=== PATIENT | female | born 1985 | race American Indian/Alaskan Native ===

== ENCOUNTER 2019-01-05 13:45 | Emergency (ER) | payer MEDICARE ==
--- NOTE | 2019-01-05 14:02 | Emergency Department Report ---
Blank Doc - Documentation Documentation: pt states she is feeling angry and starting to feel "SI" having delusions no HI no hallucinations denies any suicidal plan [place] [facility] pt states she is on depo
[2019-01-05 14:32] LABS: Basophils % (Auto) 0.3 % (0.0-1.8); Eosinophils % (Auto) 0.2 % (0.0-4.3); Hematocrit 37.8 % (30.3-42.9); Hemoglobin 13.1 gm/dl (10.1-14.3); Lymphocytes # (Auto) 1.8 K/mm3 (1.2-5.4); Lymphocytes % (Auto) 22.1 % (13.4-35.0); Mean Corpuscular HGB Conc 35 % (30-34); Mean Corpuscular Volume 96 fl (79-97); Monocytes # (Auto) 0.9 K/mm3 (0.0-0.8); Monocytes % (Auto) 10.6 % (0.0-7.3); Platelet Count 208 K/mm3 (140-440); Red Blood Count 3.94 M/mm3 (3.65-5.03); Red Cell Distribution Width 13.5 % (13.2-15.2)
[2019-01-05 14:51] LABS: Alanine Aminotransferase 9 units/L (7-56); Albumin 4.2 g/dL (3.9-5); BUN/Creatinine Ratio 9; Blood Urea Nitrogen 6 mg/dL (7-17); Hemolysis Index 9
[2019-01-05 15:02] LABS: Amphetamine Screen,Urine PRESUMPTIVE NEGATIVE; Benzodiazepines Screen,Urine PRESUMPTIVE NEGATIVE; Cannabinoid Screen,Urine PRESUMPTIVE NEGATIVE; Cocaine Screen,Urine PRESUMPTIVE NEGATIVE; Methadone Screen,Urine PRESUMPTIVE NEGATIVE; Opiate Screen,Urine PRESUMPTIVE NEGATIVE
[2019-01-05 15:05] LABS: Bacteria,Urine 1+ /HPF (Negative); Bilirubin,Urine NEG (Negative); Blood,Urine MOD (Negative); Color,Urine Yellow (Yellow); Hyaline Casts,Urine 9 /LPF; Mucus,Urine FEW /HPF; Urobilinogen,Urine < 2.0 mg/dL (<2.0)
--- NOTE | 2019-01-05 19:21 | Emergency Department Report ---
ED Psych HPI - General Chief Complaint: Psych Stated Complaint: PSYCH Time Seen by Provider: 01/05/19 14:00 Source: patient Mode of arrival: Ambulatory - History of Present Illness Initial Comments: Patient is 33 years old female with history of schizophrenia. Patient presented to the ER stating that she is hearing voices passing out to kill herself by running in traffic. Patient stated that she had history of suicidal attempts before but she does not want to elaborate. Patient denied any homicidal ideation. Patient also denied any visual hallucination. MD Complaint: suicidal ideation Associated Psychiatric Symptoms: suicidal ideation, racing thoughts, auditory hallucinations History of same: Yes Quality: constant Improves With: none Worsens With: none Associated Symptoms: denies other symptoms Treatments Prior to Arrival: none If Self Harm: admits thoughts of, has plan, self-inflicted trauma - Related Data Home Medications Medication Instructions Recorded Confirmed Last Taken No Known Home Medications [No 01/03/19 01/03/19 Unknown Reported Home Medications] Allergies Allergy/AdvReac Type Severity Reaction Status Date / Time No Known Allergies Allergy Unverified 01/02/19 22:32 ED Review of Systems ROS: Stated complaint: PSYCH Other details as noted in HPI Comment: All other systems reviewed and negative Constitutional: denies: chills, fever Respiratory: denies: cough, orthopnea, shortness of breath, SOB with exertion, SOB at rest Cardiovascular: denies: chest pain, palpitations Gastrointestinal: denies: abdominal pain, nausea Genitourinary: denies: frequency, hematuria Musculoskeletal: denies: back pain Neurological: denies: numbness Psychiatric: anxiety, depression, auditory hallucinations, suicidal thoughts. denies: visual hallucinations, homicidal thoughts ED Past Medical Hx - Past Medical History Hx Seizures: Yes Hx Psychiatric Treatment: Yes (bipolar,schizophrenia) Additional medical history: PCOS - Social History Smoking Status: Never Smoker Substance Use Type: None - Medications Home Medications: Home Medications Medication Instructions Recorded Confirmed Last Taken Type No Known Home Medications [No 01/03/19 01/03/19 Unknown History Reported Home Medications] ED Physical Exam - General Limitations: No Limitations General appearance: alert, in no apparent distress - Head Head exam: Present: atraumatic, normocephalic, normal inspection - Eye Eye exam: Present: normal appearance, PERRL - ENT ENT exam: Present: normal exam, normal orophraynx, mucous membranes moist - Neck Neck exam: Present: normal inspection, full ROM. Absent: tenderness, meningismus, lymphadenopathy, thyromegaly - Respiratory Respiratory exam: Present: normal lung sounds bilaterally - Cardiovascular Cardiovascular Exam: Present: regular rate, normal rhythm, normal heart sounds - GI/Abdominal GI/Abdominal exam: Present: soft, normal bowel sounds. Absent: distended, tenderness, guarding, rebound, rigid, organomegaly, mass, bruit, pulsatile mass, hernia - Extremities Exam Extremities exam: Present: normal inspection, full ROM, normal capillary refill - Back Exam Back exam: Present: normal inspection, full ROM. Absent: CVA tenderness (R), CVA tenderness (L), muscle spasm, paraspinal tenderness, vertebral tenderness, rash noted - Neurological Exam Neurological exam: Present: alert, oriented X3, CN II-XII intact, normal gait, reflexes normal. Absent: abnormal gait, motor sensory deficit - Psychiatric Psychiatric exam: Present: depressed, anxious, suicidal ideation. Absent: homicidal ideation - Skin Skin exam: Present: warm, intact, normal color ED Course Vital Signs 01/05/19 14:01 Temperature 98.6 F Pulse Rate 128 H Respiratory 18 Rate Blood Pressure 110/80 O2 Sat by Pulse 94 Oximetry ED Medical Decision Making - Lab Data Result diagrams: 01/05/19 14:06 01/05/19 14:06 Critical care attestation.: If time is entered above; I have spent that time in minutes in the direct care of this critically ill patient, excluding procedure time. ED Disposition Clinical Impression: Suicidal ideation, Psychosis Disposition: [id number]/TX-65 PSY HOSP/PSY UNIT Is pt being admited?: No Condition: Stable Referrals: OSMANI CALVO MD [Primary Care Provider] - 3-5 Days
[2019-01-05] MEDS ORDERED: GEODON ONE (22:40)
[2019-01-05] MEDS: GEODON PO PRN (22:45)
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
[2019-01-06] MEDS: GEODON PO PRN (17:25)
[2019-01-06] MEDS ORDERED: ATIVAN IM ONE (18:14)
[2019-01-06] MEDS ORDERED: BENADRYL IM ONE (18:14)
[2019-01-06] MEDS ORDERED: HALDOL IM ONE (18:14)
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
[2019-01-06] MEDS ORDERED: HALDOL ONE (18:17)
[2019-01-06] MEDS ORDERED: ATIVAN ONE (18:17)
--- NOTE | 2019-01-07 12:54 | Progress Note ---
Subjective - Reason for Consult Consult date: 01/07/19 Reason for consult: Psychiatry [id number] - Chief Complaint Chief complaint: 'I was bad yesterday" 33 y.o. white female who presented to the ER for SI's. This patient is known to me. Today the patient was calm and cooperative during the assessment. the patient apologized for her behavior yesterday. She denies that she tried to hurt staff. She denies SI/HI;s and AVH's. The patient has a Tobacco Prizer Ms Miller with [facility]. Mental Status Exam - Vital signs Last Vital Signs Temp 98.0 F 01/07/19 03:36 Pulse 96 H 01/07/19 03:36 Resp 18 01/07/19 03:36 BP 93/55 01/07/19 03:36 Pulse Ox 96 01/07/19 03:36 - Exam Narrative exam: MSE: Appearance: calm, cooperative Behavior: regular eye contact Speech: regular rate and tone Mood: "okay" Affect: congruent to mood Thought Process: circumstantial Thought Content: denies SI/HI's and AVH's Motor Activity: ambulatory Cognition: A/O x 3 Insight: variable Judgment: variable Assessment and Plan Impression: Unspecified Intellectual Disability. HX of Mood DO. The patient's recent actions are behavioral driven. Today the patient is calm and cooperative during the assessment. Recommendation/Plan: Rescind 1013. Start home medications Depakote 1000 mg PO HS, Klonopin 1 mg PO BID, and Geodon 120 mg PO HS. The patient has a foster care case manager Ms Miller [phone] with [employer] [facility]. [facility] Case Mgmt is collaboraing with [facility] to facilitate placement for the patient. Dispo: Once placement (residence) is determined, a outpatient mental eliseo referral will be given to the patient. Will staff with Dr. Kyrie Espinosa
[2019-01-07] MEDS: GEODON PO SCH (23:47)
--- NOTE | 2019-01-08 10:42 | Progress Note ---
Subjective - Reason for Consult Consult date: 01/08/19 Reason for consult: Psychiatry Follow-up - Chief Complaint Chief complaint: "When will I be leaving" 33 y.o. white female who presented to the ER for SI's. This patient is known to me. Today the patient was calm and cooperative during the assessment. She is concerned about her discharged. Per the notes, no behavioral disturbances overnight. The patient denies SI/HI's and AVH's. No indications of side effects of her medications. Mental Status Exam - Vital signs Last Vital Signs Temp 98.2 F 01/08/19 00:00 Pulse 73 01/08/19 00:00 Resp 18 01/08/19 00:00 BP 100/61 01/08/19 00:00 Pulse Ox 96 01/08/19 00:00 - Exam Narrative exam: MSE: Appearance: calm, cooperative Behavior: regular eye contact Speech: regular rate and tone Mood: "okay" Affect: congruent to mood Thought Process: circumstantial Thought Content: denies SI/HI's and AVH's Motor Activity: ambulatory Cognition: A/O x 3 Insight: variable Judgment: variable Assessment and Plan Impression: Unspecified Intellectual Disability. HX of Mood DO. The patient's recent actions are behavioral driven. Today the patient is calm and cooperative during the assessment. Recommendation/Plan: Rescind 1013. Start home medications Depakote 1000 mg PO HS, Klonopin 1 mg PO BID, and Geodon 120 mg PO HS. The patient has a continuous pillowcase cutter Ms Miller [phone] with [employer] [facility]. [facility] Case Mgmt is collaboraing with [facility] to facilitate placement for the patient. Psy signs off. Dispo: The patient is pending placement per case mgmt. Will staff with Dr. Kyrie Espinosa
[2019-01-08] MEDS: GEODON PO SCH (22:07)
[2019-01-09] MEDS: GEODON PO SCH ×2 (22:16→22:50)
[2019-01-10] MEDS: GEODON PO SCH (21:53)
[2019-01-11 15:11] VITALS: BP 107/76
== END 2019-01-11 16:30 ==
LOC: ED 13:45 → EEVIPCON 13:45 → ED 01-11 16:30
DX: F23 Brief psychotic disorder (principal); F41.9 Anxiety disorder, unspecified; F31.9 Bipolar disorder, unspecified
CPT/HCPCS: 36415; 80053; 80307; 81001; 84703; 85025; 96372; 99284; G0480; J1200; J1630; J2060; 80320